=== PATIENT | female | born 1955 ===

== ENCOUNTER 2025-05-19 13:00 | Outpatient (RCR) | payer MEDICARE, SELFPAY ==
[2025-05-19 14:11] VITALS: BMI 38.7
--- NOTE | 2025-05-19 14:43 | PCDIET ---
Pt seen for outpatient [facility] nutrition education. Thank you for the referral!
== END 2025-07-26 10:06 | disposition home or self-care (01) ==
LOC: ANHDMC 13:00
PROVIDERS: PCP Family Medicine; Visit Provider Internal Medicine Endocrinology, Diabetes & Metabolism
DX: E11.65 Type 2 diabetes mellitus with hyperglycemia (principal); Z71.89 Other specified counseling; Z71.3 Dietary counseling and surveillance
CPT/HCPCS: 97802; G0108